=== PATIENT | male | born 1935 | race Caucasian/White ===

== ENCOUNTER → 2019-01-28 | Outpatient (CLI) | payer MEDICARE ==
[~2019-01-28] MED LIST: AMLODIPINE BESYL5 MG PO; BOOST237 ML PO; DOCUSATE SODIU100 MG PO; FERROUS SULFAT325 MG PO; HYDRALAZINE HCL10 MG PO; HYDROCODON-ACE1 EAC9 PO; MILK OF MA2400 MG/10 PO; PANTOPRAZOLE SO40 MG PO; RAPAFLO8 MG PO; SODIUM CHLORIDE 0.9% 100 ML 200 ML ONE; TAMSULOSIN HCL0.4 MG PO; VANCOMYCIN HCL1 GM IV
[2019-01-28 12:46] LABS: CREATININE, SERUM 1.37 mg/dL (0.72-1.25)
--- NOTE | 2019-01-28 16:47 | Diagnostic Imaging Report ---
EXAM: CT Abdomen and Pelvis WITHOUT contrast INDICATION: COMPARISON: None. TECHNIQUE: Abdomen and pelvis were scanned utilizing a multidetector helical scanner from the lung base to the pubic symphysis without administration of IV contrast. Absence of intravenous contrast decreases sensitivity for detection of focal lesions and vascular pathology. Coronal and sagittal reformations were obtained. Renal stone protocol was performed. IV CONTRAST: None. ORAL CONTRAST: Water RADIATION DOSE: Total DLP: 829 mGy*cm Dose modulation, iterative reconstruction, and/or weight based adjustment of the mA/kV was utilized to reduce the radiation dose to as low as reasonably achievable. COMPLICATIONS: None FINDINGS: LINES and TUBES: None. LOWER THORAX: Coronary atherosclerosis. HEPATOBILIARY: Calcified right hepatic lobe granuloma. No evidence of mass. No biliary ductal dilation. GALLBLADDER: Cholelithiasis without CT evidence of cholecystitis. High density material seen in the gallbladder, which could reflect prior contrast material. SPLEEN: No splenomegaly. PANCREAS: No focal masses or ductal dilatation. ADRENALS: There is a 2.7 cm left adrenal nodule consistent with adrenal adenoma (series 3, image 65; -11 HU). KIDNEYS/URETERS: No hydronephrosis. No cystic or solid mass lesions. There is a 2 mm left lower pole nonobstructing renal stone. GI TRACT: No abnormal distention, wall thickening, or evidence of bowel obstruction. Small hiatal hernia. PELVIC ORGANS/BLADDER: The prostate is enlarged, measuring up to 6.9 cm. LYMPH NODES: No lymphadenopathy. VESSELS: There is moderate to extensive atherosclerotic disease in the aorta and major arterial branches. PERITONEUM / RETROPERITONEUM: No free air or fluid. BONES: No acute osseous abnormality. No suspicious lytic or blastic lesions. There is diffuse osteopenia. There is an old healed right posterior lateral eighth rib fracture. Degenerative changes of the visualized spine, most pronounced at L3-L4. SOFT TISSUES: Penile pump is noted within the left lower pelvic soft tissues. Fat-containing left greater than right inguinal hernias. IMPRESSION: A 2 mm nonobstructing left lower pole renal stone. No evidence of hydronephrosis. Splenomegaly. Cholelithiasis without CT evidence of cholecystitis. Signed by: Dr. Salome Correia MD on 01/28/2019 4:44 PM
== END ==
LOC: CT 10:43
PROVIDERS: ATTEND Specialist
DX: R31.9 Hematuria, unspecified (principal)
CPT/HCPCS: 36415; 74176; 82565; 84520

== ENCOUNTER 2024-12-19 10:29 | Inpatient (IN) | payer MEDICARE ==
[~2024-12-19] VITALS: Ht 182.9 cm; Wt 72.6 kg
[~2024-12-19 10:29] MED LIST changes: +CEFDINIR300 MG PO; -SODIUM CHLORIDE 0.9% 100 ML 200 ML ONE
[2024-12-19 11:20] LABS: BASOPHILS % 0.1 % (0.0-1.0); EOSINOPHILS % 0.2 % (0.0-6.0); HEMOGLOBIN 10.7 g/dL (14.0-18.0); LYMPHOCYTES # (AUTO) 0.3 (1.0-3.2); LYMPHOCYTES % 3.3 % (18.0-39.1); MEAN CORPUSCULAR HEMOGLOBIN 32.4 pg (28-32); MEAN CORPUSCULAR HGB CONC 31.5 g/dL (31-35); MONOCYTES # (AUTO) 0.2 (0.2-0.8); MONOCYTES % 2.7 % (4.4-11.3); NEUTROPHILS # (AUTO) 7.6 (2.1-6.9); NEUTROPHILS % 93.1 % (38.7-80.0); PLATELET COUNT 111 x10e3/uL (140-360); RED CELL DISTRIBUTION WIDTH 14.1 % (11.7-14.4); WHITE BLOOD COUNT 8.17 x10e3/uL (4.8-10.8)
[2024-12-19 11:24] LABS: INR 1.1; PROTHROMBIN TIME 14.9 seconds (11.9-14.5)
[2024-12-19 11:25] LABS: PARTIAL THROMBOPLASTIN TIME 33.4 seconds (23.8-35.5)
[2024-12-19 11:27] LABS: CORONAVIRUS COVID-19 AG NEGATIVE (NEGATIVE); INFLUENZA A AG NEGATIVE (NEGATIVE); INFLUENZA B AG NEGATIVE (NEGATIVE)
[2024-12-19 11:32] LABS: ALBUMIN 3.6 g/dL (3.5-5.0); ALBUMIN/GLOBULIN RATIO 1.2 (0.8-2.0); BILIRUBIN,TOTAL 1.5 mg/dL (0.2-1.2); CREATININE, SERUM 1.49 mg/dL (0.72-1.25); TOTAL PROTEIN 6.5 g/dL (6.5-8.1)
[2024-12-19] MEDS: ACETAMINOPHEN 325 MG TAB PO ONE (11:34)
[2024-12-19] MEDS: SODIUM CHLORIDE 0.9% 1000ML 1,000 ML IV ONE (11:34)
[2024-12-19] MEDS ORDERED: SODIUM CHLORIDE 0.9% 250ML 250 ML ONE (12:15)
[2024-12-19 12:21] LABS: BILIRUBIN,URINE NEGATIVE (NEGATIVE); CLARITY,URINE CLOUDY (CLEAR); COLOR,URINE YELLOW (YELLOW); GLUCOSE, URINE NEGATIVE (NEGATIVE); KETONES,URINE NEGATIVE (NEGATIVE); LEUKOCYTE ESTERASE ,URINE LARGE (NEGATIVE); NITRITE,URINE POSITIVE (NEGATIVE); PH,URINE 5.5 (5 - 7); PROTEIN,URINE DIPSTICK >=300 (NEGATIVE); URINE UROBILINOGEN 0.2 mg/dL (0.2 - 1)
[2024-12-19] MEDS: SODIUM CHLORIDE 0.9% IV ONE (12:22)
[2024-12-19 12:25] LABS: BACTERIA,URINE MANY /HPF; RBC,URINE 0-5 /HPF (0-5)
[2024-12-19 12:40] VITALS: PULSE 82; RESP 16; TEMP 98.8
[2024-12-19] MEDS ORDERED: SODIUM CHLORIDE FLUSH 10 ML SYR INJ PRN (13:00)
[2024-12-19] MEDS ORDERED: GLYBURIDE-METF1 EAC1 PO (14:12)
[2024-12-19] MEDS ORDERED: FAMCICLOVIR250 MG PO (14:12)
[2024-12-19 14:21] VITALS: BP 121/61; PULSE 82; RESP 19; TEMP 98.7; O2SAT 97
[2024-12-19 14:22] VITALS: BP 121/61; PULSE 82; RESP 19; TEMP 98.7; O2SAT 97
[2024-12-19 17:18] VITALS: BP 141/73; PULSE 87; RESP 19; TEMP 98.6; O2SAT 97
[2024-12-19] MEDS ORDERED: DEXTROSE 50% SYRINGE 50 ML IV PRN ×2 (18:15→18:30)
[2024-12-19] MEDS ORDERED: SODIUM CHLORIDE 0.9% 1000ML 1,000 ML IV SCH (19:45)
[2024-12-19] MEDS: SODIUM CHLORIDE 0.9% 1000ML 1,000 ML IV SCH (19:54)
[2024-12-19 20:07] VITALS: BP 123/98; PULSE 85; RESP 17; TEMP 98.2; O2SAT 97
[2024-12-19] MEDS: INSULIN LISPRO 100 UNIT/1 ML 3ML VIAL SQ SCH (20:45)
[2024-12-19] MEDS ORDERED: INSULIN LISPRO 100 UNIT/1 ML 3ML VIAL SQ SCH (21:00)
[2024-12-19 21:27] VITALS: BP 123/98; PULSE 85; RESP 17; TEMP 98.2; O2SAT 97
[2024-12-20] VITALS (7 sets, daily range): BP systolic 126–146; BP diastolic 66–91; PULSE 78–100; RESP 16–20; TEMP 97.7–98.3; O2SAT 95–100
[2024-12-20] MEDS: ONDANSETRON HCL INJ 2MG/ML 2ML 2 MG/ML VIAL IV PRN (02:10)
[2024-12-20 06:08] LABS: BASOPHILS % 0.2 % (0.0-1.0); EOSINOPHILS # (AUTO) 0.1 (0.0-0.4); EOSINOPHILS % 1.3 % (0.0-6.0); HEMATOCRIT 30.5 % (38.2-49.6); HEMOGLOBIN 9.4 g/dL (14.0-18.0); LYMPHOCYTES # (AUTO) 0.4 (1.0-3.2); LYMPHOCYTES % 6.1 % (18.0-39.1); MEAN CORPUSCULAR HEMOGLOBIN 31.6 pg (28-32); MEAN CORPUSCULAR HGB CONC 30.8 g/dL (31-35); MEAN CORPUSCULAR VOLUME 102.7 fL (81-99); MONOCYTES # (AUTO) 0.4 (0.2-0.8); MONOCYTES % 5.9 % (4.4-11.3); NEUTROPHILS # (AUTO) 5.5 (2.1-6.9); NEUTROPHILS % 86.2 % (38.7-80.0); RED BLOOD COUNT 2.97 x10e6/uL (4.3-5.7); RED CELL DISTRIBUTION WIDTH 14.2 % (11.7-14.4)
[2024-12-20 06:12] LABS: PLATELET COUNT 78 x10e3/uL (140-360)
[2024-12-20 06:42] LABS: ALBUMIN/GLOBULIN RATIO 1.2 (0.8-2.0); ANION GAP 11.9 mmol/L (8-16); BILIRUBIN,TOTAL 0.9 mg/dL (0.2-1.2); CALCIUM 8.2 mg/dL (8.4-10.2); CREATININE, SERUM 1.4 mg/dL (0.72-1.25); POTASSIUM 3.9 mmol/L (3.5-5.1); TOTAL PROTEIN 5.5 g/dL (6.5-8.1)
[2024-12-20] MEDS ORDERED: CASTOR OIL PO (10:11)
[2024-12-21 04:37] VITALS: BP 142/97; PULSE 76; RESP 17; TEMP 97.4; O2SAT 100
[2024-12-21] MEDS: METFORMIN HCL 500 MG TAB PO SCH (09:00)
[2024-12-21] MEDS: GLYBURIDE 5 MG TAB PO SCH (09:00)
[2024-12-21 09:15] VITALS: BP 142/97; PULSE 76; RESP 17; TEMP 97.4; O2SAT 100
[2024-12-21 12:00] VITALS: BP 143/90; PULSE 80; RESP 19; TEMP 97.8; O2SAT 99
[2024-12-21] MEDS ORDERED: CLOTRIMAZOLE/BETAMETHASONE 45 GM CR TP SCH ×2 (15:30→21:00)
[2024-12-21 16:00] VITALS: BP 152/94; PULSE 87; RESP 20; TEMP 97.8; O2SAT 100
== END 2024-12-21 18:00 | disposition home or self-care (01) | DRG 872 ==
LOC: ER 10:40 → ERHOLD 12:58 → MED/SURG2 14:00
PROVIDERS: ADMIT Family Medicine; ATTEND Family Medicine
DX: A41.59 Other Gram-negative sepsis (principal); N39.0 Urinary tract infection, site not specified; E87.20 Acidosis, unspecified; N17.9 Acute kidney failure, unspecified; R65.20 Severe sepsis without septic shock; I10 Essential (primary) hypertension; E11.65 Type 2 diabetes mellitus with hyperglycemia; Z79.84 Long term (current) use of oral hypoglycemic drugs; Z11.52 Encounter for screening for COVID-19; Z96.0 Presence of urogenital implants; Z96.653 Presence of artificial knee joint, bilateral; Z79.899 Other long term (current) drug therapy
CPT/HCPCS: 36415; 71045; 80053; 81001; 82948; 83605; 85025; 85610; 85730; 87040; 87086; 87186; 93005; 99252; 99284; J0696; J2405; J7030; J7050

== ENCOUNTER 2025-03-15 09:11 | Emergency (ER) | payer MEDICARE ==
[~2025-03-15] VITALS: Ht 182.9 cm; Wt 72.6 kg
[~2025-03-15 09:11] MED LIST changes: +CASTOR OIL PO; +FAMCICLOVIR250 MG PO; +GLYBURIDE-METF1 EAC1 PO
[2025-03-15 09:15] VITALS: TEMP 98.1
[2025-03-15 09:36] VITALS: PULSE 79; RESP 18; O2SAT 98
[2025-03-15] MEDS: KETOROLAC TROMETHAMINE 30 MG/ML VIAL IM STA (10:36)
[2025-03-15] MEDS ORDERED: NAPROXEN250 MG PO (10:38)
== END 2025-03-15 12:26 | disposition home or self-care (01) ==
LOC: ER 09:19
DX: M25.551 Pain in right hip (principal); M25.521 Pain in right elbow; W01.0XXA Fall on same level from slipping, tripping and stumbling without subsequent striking against object, initial encounter; Y93.01 Activity, walking, marching and hiking; Y92.89 Other specified places as the place of occurrence of the external cause; I10 Essential (primary) hypertension; I48.91 Unspecified atrial fibrillation; K21.9 Gastro-esophageal reflux disease without esophagitis; Z96.653 Presence of artificial knee joint, bilateral; Z96.0 Presence of urogenital implants
CPT/HCPCS: 70450; 73502; 73562; 99284; J1885

== ENCOUNTER 2025-03-18 12:48 | Inpatient (IN) | payer MEDICARE ==
[~2025-03-18] VITALS: Ht 182.9 cm; Wt 72.6 kg
[2025-03-18] VITALS (7 sets, daily range): BP systolic 100–109; BP diastolic 65–85; PULSE 61–92; RESP 16–17; TEMP 97.8–98; O2SAT 98
[~2025-03-18 12:48] MED LIST changes: +NAPROXEN250 MG PO
[2025-03-18] MEDS ORDERED: SODIUM CHLORIDE 0.9% 1000ML 1,000 ML IV SCH (13:00)
[2025-03-18 13:29] LABS: BASOPHILS % 0.2 % (0.0-1.0); EOSINOPHILS % 0.2 % (0.0-6.0); HEMATOCRIT 29.9 % (38.2-49.6); HEMOGLOBIN 10.3 g/dL (14.0-18.0); LYMPHOCYTES # (AUTO) 0.1 (1.0-3.2); LYMPHOCYTES % 0.9 % (18.0-39.1); MEAN CORPUSCULAR HEMOGLOBIN 31.3 pg (28-32); MEAN CORPUSCULAR HGB CONC 34.4 g/dL (31-35); MEAN CORPUSCULAR VOLUME 90.9 fL (81-99); MONOCYTES % 0.4 % (4.4-11.3); NEUTROPHILS # (AUTO) 9.8 (2.1-6.9); NEUTROPHILS % 97.8 % (38.7-80.0); PLATELET COUNT 84 x10e3/uL (140-360); RED BLOOD COUNT 3.29 x10e6/uL (4.3-5.7); RED CELL DISTRIBUTION WIDTH 14.6 % (11.7-14.4); WHITE BLOOD COUNT 10.04 x10e3/uL (4.8-10.8)
[2025-03-18 13:44] LABS: INR 1.25; PROTHROMBIN TIME 16.4 seconds (11.9-14.5)
[2025-03-18 13:45] LABS: PARTIAL THROMBOPLASTIN TIME 37.2 seconds (23.8-35.5)
[2025-03-18 13:51] LABS: ALBUMIN 3.3 g/dL (3.5-5.0); ALBUMIN/GLOBULIN RATIO 1.1 (0.8-2.0); ANION GAP 16.4 mmol/L (8-16); BILIRUBIN,TOTAL 2.4 mg/dL (0.2-1.2); CALCIUM 8.6 mg/dL (8.4-10.2); CREATININE, SERUM 1.69 mg/dL (0.72-1.25); POTASSIUM 4.4 mmol/L (3.5-5.1); TOTAL PROTEIN 6.2 g/dL (6.5-8.1)
[2025-03-18] MEDS: SODIUM CHLORIDE 0.9% 1000ML 1,000 ML IV SCH (14:09)
[2025-03-18 15:04] LABS: BILIRUBIN,URINE SMALL (NEGATIVE); CLARITY,URINE TURBID (CLEAR); COLOR,URINE RED (YELLOW); GLUCOSE, URINE NEGATIVE (NEGATIVE); KETONES,URINE NEGATIVE (NEGATIVE); LEUKOCYTE ESTERASE ,URINE NEGATIVE (NEGATIVE); NITRITE,URINE NEGATIVE (NEGATIVE); PH,URINE 6.5 (5 - 7); PROTEIN,URINE DIPSTICK >=300 (NEGATIVE); URINE UROBILINOGEN 0.2 mg/dL (0.2 - 1)
[2025-03-18 15:07] LABS: EPITHELIAL CELLS,URINE RARE /LPF; RBC,URINE >50 /HPF (0-5)
[2025-03-18] MEDS ORDERED: IOPAMIDOL 370 MG/ML 100 ML INFUS..BTL INJ ONE (15:09)
[2025-03-18] MEDS ORDERED: ONDANSETRON HCL INJ 2MG/ML 2ML 2 MG/ML VIAL IV PRN (17:00)
[2025-03-18] MEDS ORDERED: Morphine 4mg INJECTION 4 MG/ML INJ IV PRN (17:00)
[2025-03-18] MEDS: METRONIDAZOLE 750MG/NS 150ML 150 ML IV SCH (17:28)
[2025-03-18] MEDS ORDERED: TYLENOL325 MG PO (20:19)
[2025-03-18] MEDS ORDERED: GLIPIZIDE5 MG PO (20:19)
[2025-03-18 23:02] LABS: % IRON SATURATION 14 % (15-50); IRON 43 ug/dL (65-175); TOTAL IRON BINDING CAPACITY 312 ug/dL (261-478); TRANSFERRIN 223 mg/dL (174-364)
[2025-03-18] MEDS: ACETAMINOPHEN 325 MG TAB PO PRN (23:29)
[2025-03-19] VITALS (8 sets, daily range): BP systolic 89–140; BP diastolic 63–85; PULSE 58–92; RESP 17–18; TEMP 97.4–98; O2SAT 96–100
[2025-03-19 06:19] LABS: BASOPHILS % 0.3 % (0.0-1.0); EOSINOPHILS # (AUTO) 0.1 (0.0-0.4); EOSINOPHILS % 0.4 % (0.0-6.0); HEMATOCRIT 27.7 % (38.2-49.6); HEMOGLOBIN 9.1 g/dL (14.0-18.0); LYMPHOCYTES # (AUTO) 0.4 (1.0-3.2); LYMPHOCYTES % 2.8 % (18.0-39.1); MEAN CORPUSCULAR HEMOGLOBIN 31.2 pg (28-32); MEAN CORPUSCULAR HGB CONC 32.9 g/dL (31-35); MEAN CORPUSCULAR VOLUME 94.9 fL (81-99); MONOCYTES # (AUTO) 0.7 (0.2-0.8); MONOCYTES % 4.7 % (4.4-11.3); NEUTROPHILS # (AUTO) 14.1 (2.1-6.9); NEUTROPHILS % 90.8 % (38.7-80.0); RED BLOOD COUNT 2.92 x10e6/uL (4.3-5.7); RED CELL DISTRIBUTION WIDTH 14.7 % (11.7-14.4); WHITE BLOOD COUNT 15.49 x10e3/uL (4.8-10.8)
[2025-03-19 06:25] LABS: PLATELET COUNT 71 x10e3/uL (140-360)
[2025-03-19 06:54] LABS: ALBUMIN 2.7 g/dL (3.5-5.0); ALBUMIN/GLOBULIN RATIO 1.1 (0.8-2.0); ANION GAP 14.3 mmol/L (8-16); CREATININE, SERUM 1.94 mg/dL (0.72-1.25); POTASSIUM 4.3 mmol/L (3.5-5.1); TOTAL PROTEIN 5.2 g/dL (6.5-8.1)
[2025-03-19] MEDS: IRON SUCROSE 100 MG in SODIUM CHLORIDE 0.9% 100 ML IV SCH (08:55)
[2025-03-19 09:36] LABS: LYMPHOCYTES % (MANUAL) 3 % (19-48); MONOCYTES % (MANUAL) 2 % (3.4-9.0); NEUTROPHILS % (MANUAL) 95 % (40-74); PLATELET ESTIMATE MODERATELY DECREASED; PLATELET MORPHOLOGY COMMENT NORMAL; RBC MORPHOLOGY COMMENT NORMAL
[2025-03-19] MEDS: SODIUM CHLORIDE 0.9% 1000ML 1,000 ML IV SCH (12:00)
[2025-03-19] MEDS: POLYETHYLENE GLYCOL 3350 17 GM PACK PO SCH (17:00)
[2025-03-19] MEDS: ENOXAPARIN 30 MG/0.3 ML SYR SC SCH (17:06)
[2025-03-20] VITALS (8 sets, daily range): BP systolic 99–151; BP diastolic 63–87; PULSE 83–96; RESP 18–20; TEMP 97.5–98; O2SAT 94–98
[2025-03-20] MEDS: METRONIDAZOLE 750MG/NS 150ML 150 ML IV SCH (04:41)
[2025-03-20 06:19] LABS: BASOPHILS % 0.3 % (0.0-1.0); EOSINOPHILS # (AUTO) 0.3 (0.0-0.4); HEMATOCRIT 27.1 % (38.2-49.6); LYMPHOCYTES # (AUTO) 0.4 (1.0-3.2); LYMPHOCYTES % 3.4 % (18.0-39.1); MEAN CORPUSCULAR HEMOGLOBIN 31.1 pg (28-32); MEAN CORPUSCULAR HGB CONC 33.2 g/dL (31-35); MEAN CORPUSCULAR VOLUME 93.8 fL (81-99); MONOCYTES # (AUTO) 0.6 (0.2-0.8); MONOCYTES % 4.7 % (4.4-11.3); NEUTROPHILS % 88.3 % (38.7-80.0); PLATELET COUNT 84 x10e3/uL (140-360); RED BLOOD COUNT 2.89 x10e6/uL (4.3-5.7); RED CELL DISTRIBUTION WIDTH 14.8 % (11.7-14.4); WHITE BLOOD COUNT 12.41 x10e3/uL (4.8-10.8)
[2025-03-20 06:48] LABS: ALBUMIN 2.7 g/dL (3.5-5.0); ANION GAP 12.5 mmol/L (8-16); BILIRUBIN,TOTAL 0.7 mg/dL (0.2-1.2); CALCIUM 7.8 mg/dL (8.4-10.2); CREATININE, SERUM 2.04 mg/dL (0.72-1.25); POTASSIUM 4.5 mmol/L (3.5-5.1); TOTAL PROTEIN 5.3 g/dL (6.5-8.1)
[2025-03-20] MEDS ORDERED: METRONIDAZOLE 750MG/NS 150ML 150 ML IV SCH (08:00)
[2025-03-20] MEDS: METRONIDAZOLE 500MG/NS 100ML 100 ML IV SCH (17:42)
[2025-03-20] MEDS: SODIUM CHLORIDE 1 GM TAB PO SCH (21:00)
[2025-03-21] VITALS (8 sets, daily range): BP systolic 126–149; BP diastolic 65–80; PULSE 54–90; RESP 18–20; TEMP 97.5–98.6; O2SAT 96–100
[2025-03-21] MEDS: BISACODYL 5 MG TAB EC PO ONE (20:58)
[2025-03-22] VITALS (7 sets, daily range): BP systolic 135–150; BP diastolic 66–88; PULSE 53–90; RESP 17–21; TEMP 97.4–98; O2SAT 96–100
[2025-03-22 06:45] LABS: BASOPHILS % 0.2 % (0.0-1.0); EOSINOPHILS # (AUTO) 0.2 (0.0-0.4); EOSINOPHILS % 2.4 % (0.0-6.0); HEMATOCRIT 27.5 % (38.2-49.6); HEMOGLOBIN 9.3 g/dL (14.0-18.0); LYMPHOCYTES # (AUTO) 0.4 (1.0-3.2); LYMPHOCYTES % 4.5 % (18.0-39.1); MEAN CORPUSCULAR HEMOGLOBIN 31.1 pg (28-32); MEAN CORPUSCULAR HGB CONC 33.8 g/dL (31-35); MONOCYTES # (AUTO) 0.4 (0.2-0.8); MONOCYTES % 4.8 % (4.4-11.3); NEUTROPHILS # (AUTO) 7.4 (2.1-6.9); PLATELET COUNT 98 x10e3/uL (140-360); RED BLOOD COUNT 2.99 x10e6/uL (4.3-5.7); RED CELL DISTRIBUTION WIDTH 14.6 % (11.7-14.4); WHITE BLOOD COUNT 8.59 x10e3/uL (4.8-10.8)
[2025-03-22 07:22] LABS: ALBUMIN 2.8 g/dL (3.5-5.0); ANION GAP 12.5 mmol/L (8-16); BILIRUBIN,TOTAL 0.7 mg/dL (0.2-1.2); CALCIUM 7.9 mg/dL (8.4-10.2); CREATININE, SERUM 1.65 mg/dL (0.72-1.25); POTASSIUM 4.5 mmol/L (3.5-5.1); TOTAL PROTEIN 5.6 g/dL (6.5-8.1)
[2025-03-22] MEDS: BALSAM PERU/CASTOR OIL 60 GM OINT...G. TP SCH (09:00)
[2025-03-22] MEDS: MUPIROCIN 2% OINT 22 GM TUBE TOP SCH (09:55)
[2025-03-23] VITALS (9 sets, daily range): BP systolic 132–160; BP diastolic 69–94; PULSE 60–83; RESP 17–20; TEMP 95.7–98.3; O2SAT 98–100
[2025-03-23] MEDS: BISACODYL 5 MG TAB EC PO ONE (03:47)
[2025-03-23 06:25] LABS: BASOPHILS % 0.5 % (0.0-1.0); EOSINOPHILS # (AUTO) 0.3 (0.0-0.4); EOSINOPHILS % 3.6 % (0.0-6.0); HEMATOCRIT 28.8 % (38.2-49.6); HEMOGLOBIN 9.5 g/dL (14.0-18.0); LYMPHOCYTES # (AUTO) 0.5 (1.0-3.2); LYMPHOCYTES % 6.2 % (18.0-39.1); MEAN CORPUSCULAR HEMOGLOBIN 30.6 pg (28-32); MEAN CORPUSCULAR VOLUME 92.9 fL (81-99); MONOCYTES # (AUTO) 0.6 (0.2-0.8); MONOCYTES % 6.6 % (4.4-11.3); NEUTROPHILS # (AUTO) 6.6 (2.1-6.9); NEUTROPHILS % 78.9 % (38.7-80.0); PLATELET COUNT 114 x10e3/uL (140-360); RED CELL DISTRIBUTION WIDTH 14.7 % (11.7-14.4); WHITE BLOOD COUNT 8.34 x10e3/uL (4.8-10.8)
[2025-03-23 06:50] LABS: ANION GAP 11.5 mmol/L (8-16); CALCIUM 8.1 mg/dL (8.4-10.2); CREATININE, SERUM 1.56 mg/dL (0.72-1.25); POTASSIUM 4.5 mmol/L (3.5-5.1)
[2025-03-24] VITALS: BP 138/86; PULSE 75; RESP 19; TEMP 97.5; O2SAT 95
[2025-03-24 04:00] VITALS: BP 149/80; PULSE 93; RESP 20; TEMP 97.3; O2SAT 100
[2025-03-24 08:59] VITALS: BP 153/88; PULSE 92; RESP 17; TEMP 98.3; O2SAT 100
[2025-03-24 12:34] VITALS: BP 154/76; PULSE 56; RESP 18; TEMP 98; O2SAT 100
[2025-03-24 15:30] VITALS: BP 138/73; PULSE 72; RESP 17; TEMP 97.6; O2SAT 99
== END 2025-03-24 20:03 | DRG 690 ==
LOC: ER 12:54 → ERHOLD 17:04 → MED/SURG3 18:04
PROVIDERS: ADMIT Family Medicine; ATTEND Family Medicine
DX: N39.0 Urinary tract infection, site not specified (principal); N17.9 Acute kidney failure, unspecified; G20.A1 Parkinson's disease without dyskinesia, without mention of fluctuations; E11.9 Type 2 diabetes mellitus without complications; D50.9 Iron deficiency anemia, unspecified; B96.1 Klebsiella pneumoniae [K. pneumoniae] as the cause of diseases classified elsewhere; I10 Essential (primary) hypertension; I48.91 Unspecified atrial fibrillation; K76.0 Fatty (change of) liver, not elsewhere classified; K21.9 Gastro-esophageal reflux disease without esophagitis; K82.8 Other specified diseases of gallbladder; R31.9 Hematuria, unspecified; D35.02 Benign neoplasm of left adrenal gland; R53.81 Other malaise; K59.00 Constipation, unspecified; H91.93 Unspecified hearing loss, bilateral; Z79.84 Long term (current) use of oral hypoglycemic drugs; Z96.0 Presence of urogenital implants; Z91.012 Allergy to eggs
CPT/HCPCS: 36415; 71045; 74177; 74181; 80048; 80053; 81001; 82607; 82746; 82948; 83540; 83605; 84466; 85025; 85045; 85610; 85730; 87040; 87086; 87186; 99252; 99285; J0696; J1650; J1756; J2470; J7030; J7050; Q9967

== ENCOUNTER 2025-07-04 17:53 | Inpatient (IN) | payer MEDICARE ==
[~2025-07-04] VITALS: Ht 182.9 cm; Wt 83.9 kg
[~2025-07-04 17:53] MED LIST changes: +GLIPIZIDE5 MG PO; +TYLENOL325 MG PO
[2025-07-04 18:18] VITALS: TEMP 97.7
[2025-07-04 18:41] LABS: BASOPHILS % 0.3 % (0.0-1.0); EOSINOPHILS % 5.0 % (0.0-6.0); LYMPHOCYTES % 9.8 % (18.0-39.1); MONOCYTES % 7.9 % (4.4-11.3); NEUTROPHILS % 76.3 % (38.7-80.0); RED CELL DISTRIBUTION WIDTH 15.9 % (11.7-14.4)
[2025-07-04] MEDS ORDERED: Morphine 4mg INJECTION 4 MG/ML INJ IV PRN (18:45)
[2025-07-04] MEDS ORDERED: ONDANSETRON HCL INJ 2MG/ML 2ML 2 MG/ML VIAL IV PRN (18:45)
[2025-07-04] MEDS ORDERED: SODIUM CHLORIDE FLUSH 10 ML SYR INJ PRN (18:45)
[2025-07-04 19:04] LABS: EST GLOMERULAR FILTRATION RATE 37.0 ML/MIN (>=60)
[2025-07-04 19:16] VITALS: PULSE 78; RESP 18; O2SAT 100
[2025-07-04] MEDS: ALBUTEROL/IPRATROPIUM 3 ML NEB NEB SCH (19:22)
[2025-07-04] MEDS: METHYLPREDNISOLONE SOD SUCC 40 MG/ML VIAL 1ML IV SCH (19:42)
[2025-07-04] MEDS: FUROSEMIDE INJ 10 MG/ML 4 ML VIAL IV SCH (19:42)
[2025-07-04 19:47] VITALS: PULSE 91; RESP 16; O2SAT 99
[2025-07-04] MEDS: ALBUTEROL/IPRATROPIUM 3 ML NEB NEB STA (19:49)
[2025-07-04 23:30] VITALS: PULSE 69; RESP 14
[2025-07-04 23:44] VITALS: PULSE 67; RESP 21; O2SAT 100
[2025-07-04 23:55] VITALS: BP 131/77; PULSE 64; RESP 21; O2SAT 100
[2025-07-05] VITALS (19 sets, daily range): BP systolic 118–151; BP diastolic 54–109; PULSE 54–99; RESP 13–22; TEMP 98.3–98.6; O2SAT 95–100
[2025-07-05 05:25] LABS: BASOPHILS % 0.2 % (0.0-1.0); EOSINOPHILS % 0.0 % (0.0-6.0); LYMPHOCYTES % 2.4 % (18.0-39.1); MONOCYTES % 0.8 % (4.4-11.3); NEUTROPHILS % 96.0 % (38.7-80.0); RED CELL DISTRIBUTION WIDTH 15.9 % (11.7-14.4)
[2025-07-05 05:41] LABS: EST GLOMERULAR FILTRATION RATE 37.0 ML/MIN (>=60)
[2025-07-05] MEDS ORDERED: DEXTROSE 50% SYRINGE 50 ML IV PRN (07:45)
[2025-07-05] MEDS: INSULIN LISPRO 100 UNIT/1 ML 3ML VIAL SQ SCH (07:51)
[2025-07-05] MEDS ORDERED: ALBUTEROL/IPRATROPIUM 3 ML NEB NEB PRN (08:00)
[2025-07-05] MEDS: INSULIN LISPRO 100 UNIT/1 ML 3ML VIAL SQ ONE (12:14)
[2025-07-05 18:41] LABS: CHOL/HDL RATIO 2.0 (3.9-4.7); LDL CHOLESTEROL 43.0 MG/DL (60-130)
[2025-07-06] VITALS (24 sets, daily range): BP systolic 99–138; BP diastolic 60–96; PULSE 63–230; RESP 11–17; TEMP 97.8–98.6; O2SAT 87–100
[2025-07-06 04:57] LABS: BASOPHILS % 0.2 % (0.0-1.0); EOSINOPHILS % 0.4 % (0.0-6.0); LYMPHOCYTES % 5.3 % (18.0-39.1); MONOCYTES % 5.4 % (4.4-11.3); NEUTROPHILS % 88.1 % (38.7-80.0); RED CELL DISTRIBUTION WIDTH 15.8 % (11.7-14.4)
[2025-07-06 05:26] LABS: EST GLOMERULAR FILTRATION RATE 40.0 ML/MIN (>=60)
[2025-07-06] MEDS ORDERED: IOPAMIDOL 370 MG/ML 100 ML INFUS..BTL INJ ONE (08:40)
[2025-07-06] MEDS: SODIUM CHLORIDE 0.9% 500ML 500 ML IV ONE (08:58)
[2025-07-06] MEDS: GUAIFENESIN 600 MG TAB PO SCH (08:59)
[2025-07-06] MEDS ORDERED: FUROSEMIDE INJ 10 MG/ML 4 ML VIAL IV SCH (09:00)
[2025-07-06 13:20] LABS: EPITHELIAL CELLS,URINE FEW /LPF; LEUKOCYTE ESTERASE ,URINE LARGE (NEGATIVE); PROTEIN,URINE DIPSTICK 2+ (NEGATIVE); URINE UROBILINOGEN 0.2 mg/dL (0.2 - 1); WBC,URINE (MAN) >50 /HPF (0-5)
[2025-07-07] VITALS (14 sets, daily range): BP systolic 99–125; BP diastolic 54–73; PULSE 63–87; RESP 11–21; TEMP 98–98.2; O2SAT 96–100
[2025-07-07 05:28] LABS: BASOPHILS % 0.4 % (0.0-1.0); EOSINOPHILS % 4.3 % (0.0-6.0); LYMPHOCYTES % 5.9 % (18.0-39.1); MONOCYTES % 6.5 % (4.4-11.3); NEUTROPHILS % 81.9 % (38.7-80.0); RED CELL DISTRIBUTION WIDTH 15.7 % (11.7-14.4)
[2025-07-07 06:09] LABS: EST GLOMERULAR FILTRATION RATE 42.0 ML/MIN (>=60)
[2025-07-07] MEDS: FUROSEMIDE INJ 10 MG/ML 4 ML VIAL IV SCH (08:35)
[2025-07-07] MEDS: ACETAMINOPHEN 325 MG TAB PO PRN (23:07)
[2025-07-08] VITALS (9 sets, daily range): BP systolic 106–128; BP diastolic 47–80; PULSE 48–85; RESP 14–20; TEMP 97.4–97.9; O2SAT 97–100
[2025-07-08 07:27] LABS: BASOPHILS % 0.5 % (0.0-1.0); EOSINOPHILS % 3.9 % (0.0-6.0); LYMPHOCYTES % 9.9 % (18.0-39.1); MONOCYTES % 6.7 % (4.4-11.3); NEUTROPHILS % 78.4 % (38.7-80.0); RED CELL DISTRIBUTION WIDTH 15.6 % (11.7-14.4)
[2025-07-08 08:00] LABS: EST GLOMERULAR FILTRATION RATE 44.0 ML/MIN (>=60)
[2025-07-09] VITALS (7 sets, daily range): BP systolic 107–131; BP diastolic 49–68; PULSE 68–85; RESP 16–19; TEMP 97.4–98; O2SAT 96–100
[2025-07-09 05:12] LABS: BASOPHILS % 0.4 % (0.0-1.0); EOSINOPHILS % 4.0 % (0.0-6.0); LYMPHOCYTES % 9.1 % (18.0-39.1); MONOCYTES % 7.0 % (4.4-11.3); NEUTROPHILS % 78.9 % (38.7-80.0); RED CELL DISTRIBUTION WIDTH 15.3 % (11.7-14.4)
[2025-07-09 05:42] LABS: EST GLOMERULAR FILTRATION RATE 43.0 ML/MIN (>=60)
== END 2025-07-09 14:30 | disposition home health service (06) | DRG 291 ==
LOC: ER 17:59 → ERHOLD 18:34 → ICU 23:56 → MED/SURG 07-07 13:24
PROVIDERS: ADMIT Family Medicine; ATTEND Family Medicine
PROC: 5A09357 Assistance with Respiratory Ventilation, Less than 24 Consecutive Hours, Continuous Positive Airway Pressure (ICD-10-PCS; principal; 2025-07-04)
PROC: 0T9B70Z Drainage of Bladder with Drainage Device, Via Natural or Artificial Opening (ICD-10-PCS; 2025-07-04)
PROC: 3E0F7SF Introduction of Other Gas into Respiratory Tract, Via Natural or Artificial Opening (ICD-10-PCS; 2025-07-05)
DX: I13.0 Hypertensive heart and chronic kidney disease with heart failure and stage 1 through stage 4 chronic kidney disease, or unspecified chronic kidney disease (principal); I50.33 Acute on chronic diastolic (congestive) heart failure; J96.00 Acute respiratory failure, unspecified whether with hypoxia or hypercapnia; E87.1 Hypo-osmolality and hyponatremia; N39.0 Urinary tract infection, site not specified; N28.9 Disorder of kidney and ureter, unspecified; L13.0 Dermatitis herpetiformis; I48.91 Unspecified atrial fibrillation; K21.9 Gastro-esophageal reflux disease without esophagitis; Z96.653 Presence of artificial knee joint, bilateral; E78.5 Hyperlipidemia, unspecified; K59.00 Constipation, unspecified; D69.6 Thrombocytopenia, unspecified; E11.65 Type 2 diabetes mellitus with hyperglycemia; E11.22 Type 2 diabetes mellitus with diabetic chronic kidney disease; D64.9 Anemia, unspecified; M62.50 Muscle wasting and atrophy, not elsewhere classified, unspecified site; R01.1 Cardiac murmur, unspecified; I08.1 Rheumatic disorders of both mitral and tricuspid valves; G20.C Parkinsonism, unspecified; I27.81 Cor pulmonale (chronic); I50.811 Acute right heart failure; N18.32 Chronic kidney disease, stage 3b; I27.20 Pulmonary hypertension, unspecified; R53.81 Other malaise; R31.0 Gross hematuria; S30.1XXA Contusion of abdominal wall, initial encounter; X58.XXXA Exposure to other specified factors, initial encounter; Z96.0 Presence of urogenital implants; Z79.84 Long term (current) use of oral hypoglycemic drugs; Z91.012 Allergy to eggs; Z87.440 Personal history of urinary (tract) infections; Y92.9 Unspecified place or not applicable
CPT/HCPCS: 36415; 51700; 71045; 71260; 76770; 80048; 80053; 80061; 81001; 82550; 82948; 83036; 83690; 83735; 83880; 84443; 84484; 85025; 93005; 93306; 93970; 94660; 94799; 96372; 99252; 99285; J0696; J1938; J2919; J7040; Q9967

== ENCOUNTER → 2025-09-01 | Outpatient (REF) | payer MEDICARE ==
[2025-09-01 09:23] LABS: BASOPHILS % 0.3 % (0.0-1.0); EOSINOPHILS % 1.8 % (0.0-6.0); LYMPHOCYTES % 9.7 % (18.0-39.1); MONOCYTES % 6.9 % (4.4-11.3); NEUTROPHILS % 80.7 % (38.7-80.0); RED CELL DISTRIBUTION WIDTH 15.3 % (11.7-14.4)
[2025-09-01 10:00] LABS: INR 1.28
== END ==
LOC: US 08:35
PROVIDERS: ATTEND Family Medicine
DX: J81.0 Acute pulmonary edema (principal); I50.21 Acute systolic (congestive) heart failure
CPT/HCPCS: 32555; 36415; 71045; 71250; 85025; 85610; 85730; C1729

== ENCOUNTER 2025-09-15 10:22 | Inpatient (IN) | payer MEDICARE ==
[~2025-09-15] VITALS: Ht 182.9 cm; Wt 83.9 kg
[2025-09-15] VITALS (10 sets, daily range): BP systolic 94–117; BP diastolic 59–69; PULSE 62–75; RESP 16–18; TEMP 97.7–98.1; O2SAT 96–100
[2025-09-15 11:19] LABS: BASOPHILS % 0.4 % (0.0-1.0); EOSINOPHILS % 1.1 % (0.0-6.0); LYMPHOCYTES % 4.4 % (18.0-39.1); MONOCYTES % 5.6 % (4.4-11.3); NEUTROPHILS % 88.0 % (38.7-80.0); RED CELL DISTRIBUTION WIDTH 14.7 % (11.7-14.4)
[2025-09-15 11:39] LABS: INR 1.33
[2025-09-15 11:50] LABS: EST GLOMERULAR FILTRATION RATE 33.0 ML/MIN (>=60)
[2025-09-15] MEDS ORDERED: FUROSEMIDE INJ 10 MG/ML 4 ML VIAL IV SCH (13:15)
[2025-09-15] MEDS ORDERED: CIPRO500 MG PO (16:09)
[2025-09-15] MEDS ORDERED: BUMETANIDE0.5 MG PO (16:09)
[2025-09-15] MEDS ORDERED: GLIPIZIDE ER5 MG PO (16:09)
[2025-09-15] MEDS ORDERED: LASIX40 MG PO (16:09)
[2025-09-15] MEDS ORDERED: CIPROFLOXACIN 500 MG TAB PO SCH (17:00)
[2025-09-15] MEDS: FUROSEMIDE 40 MG TAB PO SCH (17:00)
[2025-09-15] MEDS: CIPROFLOXACIN 500 MG TAB PO SCH (18:03)
[2025-09-15] MEDS: FUROSEMIDE INJ 10 MG/ML 4 ML VIAL IV SCH (18:03)
[2025-09-15] MEDS: IPRATROPIUM BROMIDE 0.02% 2.5 ML NEB NEB SCH (19:38)
[2025-09-16] VITALS (13 sets, daily range): BP systolic 100–145; BP diastolic 61–95; PULSE 55–83; RESP 16–20; TEMP 97–98.2; O2SAT 95–100
[2025-09-16 06:39] LABS: BASOPHILS % 0.8 % (0.0-1.0); EOSINOPHILS % 2.2 % (0.0-6.0); LYMPHOCYTES % 6.2 % (18.0-39.1); MONOCYTES % 6.9 % (4.4-11.3); NEUTROPHILS % 83.4 % (38.7-80.0); RED CELL DISTRIBUTION WIDTH 14.8 % (11.7-14.4)
[2025-09-16 06:54] LABS: EST GLOMERULAR FILTRATION RATE 34.0 ML/MIN (>=60)
[2025-09-16] MEDS ORDERED: GLIPIZIDE 2.5 MG TABCR PO SCH (08:00)
[2025-09-16] MEDS ORDERED: BUMETANIDE 1 MG TAB PO SCH ×2 (09:00)
[2025-09-16] MEDS: ACETAMINOPHEN 325 MG TAB PO SCH (09:16)
[2025-09-16] MEDS: GLIPIZIDE 5 MG TAB ER PO SCH (09:16)
[2025-09-17] VITALS (9 sets, daily range): BP systolic 109–140; BP diastolic 63–84; PULSE 49–93; RESP 18–21; TEMP 97.7–98.2; O2SAT 95–100
[2025-09-17] MEDS: ACETAMINOPHEN 325 MG TAB PO ONE (04:09)
[2025-09-17 05:10] LABS: BASOPHILS % 0.5 % (0.0-1.0); EOSINOPHILS % 2.6 % (0.0-6.0); LYMPHOCYTES % 5.6 % (18.0-39.1); MONOCYTES % 7.0 % (4.4-11.3); NEUTROPHILS % 83.8 % (38.7-80.0); RED CELL DISTRIBUTION WIDTH 14.5 % (11.7-14.4)
[2025-09-17 05:54] LABS: EST GLOMERULAR FILTRATION RATE 33.0 ML/MIN (>=60)
[2025-09-18] VITALS (12 sets, daily range): BP systolic 99–125; BP diastolic 58–77; PULSE 58–78; RESP 18–20; TEMP 97.2–99; O2SAT 93–100
[2025-09-18] MEDS: ACETAMINOPHEN 325 MG TAB PO PRN (22:03)
[2025-09-19 03:00] VITALS: BP 110/81; PULSE 83; RESP 20; TEMP 98.1; O2SAT 98
[2025-09-19 06:38] VITALS: PULSE 63; RESP 22; O2SAT 99
[2025-09-19] MEDS: ASPIRIN 81 MG ENTERIC COATED PO SCH (10:08)
[2025-09-19 12:00] VITALS: BP 114/59; PULSE 79; RESP 16; TEMP 97.6; O2SAT 99
[2025-09-19 14:35] VITALS: PULSE 72; RESP 22; O2SAT 96
[2025-09-19 14:37] VITALS: PULSE 75; RESP 20; O2SAT 96
== END 2025-09-19 16:30 | disposition home or self-care (01) | DRG 291 ==
LOC: ER 10:26 → ERHOLD 11:03 → MED/SURG2 13:52
PROVIDERS: ADMIT Family Medicine; ATTEND Family Medicine
PROC: 0W993ZZ Drainage of Right Pleural Cavity, Percutaneous Approach (ICD-10-PCS; principal; 2025-09-15)
DX: I13.0 Hypertensive heart and chronic kidney disease with heart failure and stage 1 through stage 4 chronic kidney disease, or unspecified chronic kidney disease (principal); J96.01 Acute respiratory failure with hypoxia; J90 Pleural effusion, not elsewhere classified; E46 Unspecified protein-calorie malnutrition; E87.1 Hypo-osmolality and hyponatremia; N17.9 Acute kidney failure, unspecified; I48.20 Chronic atrial fibrillation, unspecified; D69.6 Thrombocytopenia, unspecified; I27.29 Other secondary pulmonary hypertension; E11.22 Type 2 diabetes mellitus with diabetic chronic kidney disease; N18.32 Chronic kidney disease, stage 3b; K59.00 Constipation, unspecified; R53.81 Other malaise; K21.9 Gastro-esophageal reflux disease without esophagitis; N40.0 Benign prostatic hyperplasia without lower urinary tract symptoms; Z68.25 Body mass index [BMI] 25.0-25.9, adult; Z79.84 Long term (current) use of oral hypoglycemic drugs; Z74.01 Bed confinement status; Z91.0120 Allergy to eggs, unspecified
CPT/HCPCS: 32555; 36415; 51700; 71045; 74470; 80048; 80053; 82948; 83880; 84484; 85025; 85610; 93005; 94640; 94799; 99252; 99284; C1729; J1938